=== PATIENT | female | born 1975 | race Caucasian/White ===

== ENCOUNTER 2023-05-03 06:15 | Emergency (ER) | payer MEDICARE ==
[2023-05-03 06:25] VITALS: PULSE 88
[2023-05-03] MEDS ORDERED: ZOFRAN ODT 4 MG PO ONE (07:21)
[2023-05-03] MEDS ORDERED: Hydromorphone 1 mg/ml Injection IV ONE ×2 (07:21→09:18)
[2023-05-03] MEDS ORDERED: Sodium Chloride 0.9% 1000 ML 1,000 ML IV STA (07:21)
[2023-05-03] MEDS ORDERED: PROTONIX 40 MG IV IV ONE ×2 (07:21→08:11)
[2023-05-03] MEDS ORDERED: ZOFRAN ODT 4 MG ONE (07:24)
--- NOTE | 2023-05-03 07:26 | ERPHSYRPT ---
- History of Present Illness Time Seen by Provider: 05/03/23 07:00 Historian: patient Exam Limitations: no limitations Patient Subjective Stated Complaint: nausea, vomiting and diarrhea: Crohn's flare up Triage Nursing Assessment: Pt ambulated into ER without diff. Pt alert and oriented x4, cooperatie. Pt hasn't been feeling good for a few days but began vomiting at 8pm last night. Pt c/o nausea, vomiting and diarrhea. Pt c/o Rt lower abd pain which has gotten progressively worse. Abd soft with active bs x4 quad, tender on palpation. Physician History: This 47-year-old white female patient has a history of Crohn's disease and began vomiting at 8 PM last evening with progressively worsening abdominal pain and localization in the right lower quadrant. Patient has been having vomiting episodes and could not take her Crohn's disease medication. Patient chronically has diarrhea but her diarrhea was worse in the last 24 hours. Patient has had a cholecystectomy and appendectomy in the past. Patient has a history of hypothyroid disease. Timing/Duration: yesterday Quality: aching Abdominal Pain Onset Location: RLQ Pain Radiation: no radiation Severity of Pain-Max: moderate Severity of Pain-Current: moderate Modifying Factors: Improves With: vomiting, other Associated Symptoms: diarrhea, nausea (Diarrhea), vomiting Previous symptoms: same symptoms as today, no recent treatment Allergies/Adverse Reactions: haloperidol [From Haldol] Allergy (Verified 05/03/23 06:35) Difficulty Breathing metoclopramide [From Reglan] Adverse Reaction (Verified 05/03/23 06:35) Itching prochlorperazine [From Compazine] Adverse Reaction (Verified 05/03/23 06:35) Itching Home Medications: Adalimumab [Humira] 40 mg SQ WEEKLY 05/03/23 [History] Dicyclomine HCl 20 mg [Bentyl 20 mg] 1 tab PO DAILY 05/03/23 [History] Diphenoxylate HCl/Atropine [Lomotil Tablet] 1 each PO DAILY 05/03/23 [History] Levothyroxine Sodium 100 Mcg [Synthroid 100 Mcg] 100 mcg PO DAILY 05/03/23 [History] Ondansetron ODT 4 MG [Zofran Odt 4 mg] 1 tab PO Q4H PRN PRN 05/03/23 [History] Hx Tetanus, Diphtheria Vaccination/Date Given: No Hx Influenza Vaccination/Date Given: Yes Hx Pneumococcal Vaccination/Date Given: Yes Immunizations Up to Date: No Travel Risk - International Travel Have you traveled outside of the country in past 3 weeks: No - Coronavirus Screening Are you exhibiting any of the following symptoms?: Yes Symptoms: Vomiting/Diarrhea Close contact with a COVID-19 positive Pt in past 14-21 Days: No - Vaccine Status Have you recieved a Covid-19 vaccination: 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 - Review of Systems Constitutional: No Symptoms Eyes: No Symptoms Ears, Nose, & Throat: No Symptoms Respiratory: No Symptoms Cardiac: No Symptoms Abdominal/Gastrointestinal: Abdominal Pain, Nausea, Vomiting, Diarrhea Genitourinary Symptoms: No Symptoms Musculoskeletal: No Symptoms Skin: No Symptoms Neurological: No Symptoms Psychological: No Symptoms Endocrine: No Symptoms Hematologic/Lymphatic: No Symptoms Immunological/Allergic: No Symptoms All Other Systems: Reviewed and Negative - Past Medical History Pertinent Past Medical History: Yes Neurological History: No Pertinent History ENT History: No Pertinent History Respiratory History: No Pertinent History Endocrine Medical History: Hypothyroidism Musculoskeletal History: No Pertinent History GI Medical History: Crohns Disease, Gallbladder Disease History: No Pertinent History Psycho-Social History: No Pertinent History Female Reproductive Disorders: No Pertinent History - Past Surgical History Past Surgical History: Yes Neuro Surgical History: No Pertinent History Cardiac: No Pertinent History Respiratory: No Pertinent History Gastrointestinal: Appendectomy, Cholecystectomy, Other Genitourinary: No Pertinent History Musculoskeletal: No Pertinent History Female Surgical History: No Pertinent History Other Surgical History: small intestine 6 resections - Social History Smoking Status: Former smoker Exposure to second hand smoke: No Drug Use: none Patient Lives Alone: Yes - Female History Hx Now: No - Nursing Vital Signs Nursing Vital Signs: Initial Vital Signs Temperature 97.8 F 05/03/23 06:23 Pulse Rate 88 05/03/23 06:23 Respiratory Rate 16 05/03/23 06:23 Blood Pressure 169/102 05/03/23 06:23 O2 Sat by Pulse Oximetry 98 05/03/23 06:23 Pain Scale Pain Intensity 8 - Physical Exam General Appearance: mild distress, alert, anxiety Eye Exam: PERRL/EOMI, eyes nml inspection Ears, Nose, Throat Exam: normal ENT inspection, moist mucous membranes Neck Exam: normal inspection, non-tender, supple, full range of motion Respiratory Exam: normal breath sounds, lungs clear, airway intact, No chest tenderness, No respiratory distress Cardiovascular Exam: regular rate/rhythm, normal heart sounds, normal peripheral pulses Gastrointestinal/Abdomen Exam: soft, normal bowel sounds, tenderness (Right lower quadrant), guarding (Right lower quadrant to palpation) Pelvic Exam: not done Rectal Exam: not done Back Exam: normal inspection, normal range of motion, No CVA tenderness, No vertebral tenderness Extremity Exam: normal inspection, normal range of motion, pelvis stable Neurologic Exam: alert, oriented x 3, cooperative, 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, normal mood/affect, nml cerebellar function, nml station & gait, sensation nml Skin Exam: normal color, warm, dry Lymphatic Exam: No adenopathy SpO2 Interpretation: normal SpO2: 98 O2 Delivery: Room Air - Course Nursing assessment & vital signs reviewed: Yes Ordered Tests: Active Orders 24 hr Category Date Time Status IV Insertion STAT Care 05/03/23 07:21 Active ABDOMEN AND PELVIS W/0 CONTRAS [CT] Stat Exams 05/03/23 07:51 Completed AMYLASE Stat Lab 05/03/23 06:34 Completed CBC W DIFF Stat Lab 05/03/23 06:34 Completed CMP Stat Lab 05/03/23 06:34 Completed LIPASE Stat Lab 05/03/23 06:34 Completed Lactic Acid Stat Lab 05/03/23 07:21 Completed UA W/RFX UR CULTURE Stat Lab 05/03/23 07:21 Ordered Medication Summary Discontinued Medications Generic Name Dose Route Start Last Admin Trade Name Mindy PRN Reason Stop Dose Admin Hydromorphone HCl 1 mg 05/03/23 07:21 05/03/23 08:22 Hydromorphone 1 Mg/1ml Inj IV 05/03/23 07:22 1 mg STAT ONE Administration Hydromorphone HCl Confirm 05/03/23 08:11 Hydromorphone 1 Mg/1ml Inj Administered 05/03/23 08:12 Dose 1 mg .ROUTE .STK-MED ONE Sodium Chloride 1,000 mls @ 999 mls/hr 05/03/23 07:21 05/03/23 08:23 Sodium Chloride 0.9% 1000 Ml IV 05/03/23 08:21 999 mls/hr .Q1H1M STA Administration Sodium Chloride Confirm 05/03/23 08:11 Sodium Chloride 0.9% 1000 Ml Administered 05/03/23 08:12 Dose 1,000 mls @ ud .ROUTE .STK-MED ONE Ondansetron HCl 4 mg 05/03/23 07:21 05/03/23 07:32 Zofran 4 Mg/Udtablet Orally Disintegrating PO 05/03/23 07:22 4 mg STAT ONE Administration Ondansetron HCl Confirm 05/03/23 07:24 Zofran 4 Mg/Udtablet Orally Disintegrating Administered 05/03/23 07:25 Dose 4 mg .ROUTE .STK-MED ONE Ondansetron HCl 4 mg 05/03/23 08:24 05/03/23 08:25 Ondansetron Hcl 4 Mg/2 Ml Vial IV 05/03/23 08:25 4 mg STAT ONE Administration Ondansetron HCl Confirm 05/03/23 08:24 Ondansetron Hcl 4 Mg/2 Ml Vial Administered 05/03/23 08:25 Dose 4 mg .ROUTE .STK-MED ONE Pantoprazole Sodium 40 mg 05/03/23 07:21 05/03/23 08:22 Pantoprazole 40 Mg Vial IV 05/03/23 07:22 40 mg STAT ONE Administration Pantoprazole Sodium Confirm 05/03/23 08:11 Pantoprazole 40 Mg Vial Administered 05/03/23 08:12 Dose 40 mg IV .STK-MED ONE Lab/Rad Data: Laboratory Result Diagrams 05/03/23 06:34 05/03/23 06:34 Laboratory Results 05/03/23 05/03/23 05/03/23 Range/Units 07:21 06:34 06:34 WBC 5.9 (4.0-10.5) x10^3/uL RBC 3.63 L (4.1-5.4) x10^6/uL Hgb 11.9 L (12.0-16.0) g/dL Hct 34.3 L (35-47) % MCV 94.5 (78-100) fL MCH 32.8 H (26-32) pg MCHC 34.7 (32-36) g/dL RDW 12.2 (11.5-14.0) % Plt Count 197 (150-450) x10^3/uL MPV 9.1 (7.5-11.0) fL Gran % 51.7 (36.0-66.0) % Immature Gran % (Auto) 0.2 (0.00-0.4) % Nucleat RBC Rel Count 0.0 (0.00-0.1) % Eos # (Auto) 0.13 (0-0.5) x10^3/uL Immature Gran # (Auto) 0.01 (0.00-0.03) x10^3u/L Absolute Lymphs (auto) 2.21 (1.0-4.6) x10^3/uL Absolute Monos (auto) 0.46 (0.0-1.3) x10^3/uL Absolute Nucleated RBC 0.00 (0.00-0.01) x10^3u/L Lymphocytes % 37.6 (24.0-44.0) % Monocytes % 7.8 (0.0-12.0) % Eosinophils % 2.2 (0.00-5.0) % Basophils % 0.5 (0.0-0.4) % Absolute Granulocytes 3.03 (1.4-6.9) x10^3/uL Basophils # 0.03 (0-0.4) x10^3/uL Sodium 140 (137-145) mmol/L Potassium 3.5 (3.5-5.1) mmol/L Chloride 103 (98-107) mmol/L Carbon Dioxide 26 (22-30) mmol/L Anion Gap 13.9 (5-15) MEQ/L BUN 14 (7-17) mg/dL Creatinine 0.75 (0.52-1.04) mg/dL Estimated GFR > 60.0 ML/MIN Glucose 103 (74-106) mg/dL Lactic Acid 1.7 (0.4-2.0) Calcium 9.0 (8.4-10.2) mg/dL Total Bilirubin 0.40 (0.2-1.3) mg/dL AST 34 (14-36) U/L ALT 43 H (0-35) U/L Alkaline Phosphatase 138 H (38-126) U/L Serum Total Protein 7.1 (6.3-8.2) g/dL Albumin 4.1 (3.5-5.0) g/dL Amylase 59 (30-110) U/L Lipase 119 (23-300) U/L - Progress Progress: improved, pain not gone completely, re-examined Progress Note: 05/03/23 08:54 CAT scan of the abdomen pelvis without contrast was interpreted by the radiologist and I reviewed the impression. There is sigmoid diverticulosis without diverticulitis. The remainder of the CT scan of the abdomen pelvis is negative. This patient's medical issues 1 of moderate complexity. The level complexity and the work-up performed is based on review of the patient's past medical history, review of the patient's medication list, review of the patient's drug allergy list, history of present illness and physical findings on examination. The work-up includes placement of intravenous line, infusion of a liter of normal saline solution, infusion of Dilaudid 1 mg, Zofran 4 mg ODT and 4 mg intravenously and Protonix 40 mg intravenously. I reviewed the results of the work-up. The patient does not have any acute intra-abdominal or intrapelvic findings. Patient will be discharged home with a prescription for Zofran and instructed to follow-up with her primary care provider and solutions sales consultant today by phone to make an appointment for further evaluation management. Counseled pt/family regarding: lab results, diagnosis, need for follow-up, rad results Medical Desision Making - Diagnostic Testing Diagnostic test were ordered, analyzed, and reviewed by me: Yes Radiological Interpretation: Reviewed by me, Teleradiologist Report - Risk of complications The pt has a mod risk of morbidity or mortality based on: Need for prescription drug management - Departure Departure Disposition: Home Clinical Impression: Abdominal pain, Vomiting and diarrhea Condition: Stable Critical Care Time: No Referrals: DOCTOR,NO FAMILY [Primary Care Provider] - Follow up/PCP as directed Additional Instructions: Drink plenty of clear liquids before advancing diet. Call your primary care provider and solutions sales consultant today to make a follow-up appointment for further evaluation and management. Take your medications as prescribed. Prescriptions: Ondansetron ODT 4 MG [Zofran Odt 4 mg] 4 mg PO Q6H PRN PRN #10 tablet PRN Reason: Vomiting
[2023-05-03 07:42] LABS: Absolute Neutrophil Ct (ANC) 3.03 x10^3/uL (1.4-6.9); BASOPHIL % 0.5 % (0.0-0.4); Basophil (Absolute #) 0.03 x10^3/uL (0-0.4); Eosinophil % 2.2 % (0.00-5.0); Eosinophil (Absolute #) 0.13 x10^3/uL (0-0.5); Hematocrit 34.3 % (35-47); Hemoglobin 11.9 g/dL (12.0-16.0); IMMATURE GRAN # 0.01 x10^3u/L (0.00-0.03); IMMATURE GRAN % 0.2 % (0.00-0.4); Lymphocyte (Absolute #) 2.21 x10^3/uL (1.0-4.6); Lymphocytes % 37.6 % (24.0-44.0); Mean Cell Volume 94.5 fL (78-100); Mean Corpuscular Hemoglobin 32.8 pg (26-32); Mean Corpuscular Hgb Concent. 34.7 g/dL (32-36); Mean Platelet Volume 9.1 fL (7.5-11.0); Monocyte (Absolute #) 0.46 x10^3/uL (0.0-1.3); Monocytes % 7.8 % (0.0-12.0); Neutrophil % 51.7 % (36.0-66.0); Platelet Count 197 x10^3/uL (150-450); Red Blood Count 3.63 x10^6/uL (4.1-5.4); Red Cell Distribution Width 12.2 % (11.5-14.0); White Blood Count 5.9 x10^3/uL (4.0-10.5)
[2023-05-03 07:56] LABS: ALBUMIN 4.1 g/dL (3.5-5.0); ALKALINE PHOSPHATASE 138 U/L (38-126); AMYLASE 59 U/L (30-110); ANION GAP 13.9 MEQ/L (5-15); BLOOD UREA NITROGEN 14 mg/dL (7-17); CHLORIDE 103 mmol/L (98-107); Carbon Dioxide 26 mmol/L (22-30); Creatinine 1 0.75 mg/dL (0.52-1.04); EST GLOMERULAR FILTRATION RATE > 60.0 ML/MIN; Glucose 103 mg/dL (74-106); LIPASE 119 U/L (23-300); Potassium 3.5 mmol/L (3.5-5.1); SGOT/AST 34 U/L (14-36); SGPT/ALT 43 U/L (0-35); SODIUM 140 mmol/L (137-145); Total Protein 7.1 g/dL (6.3-8.2)
[2023-05-03] MEDS ORDERED: Sodium Chloride 0.9% 1000 ML 1,000 ML ONE (08:11)
[2023-05-03] MEDS ORDERED: Hydromorphone 1 mg/ml Injection ONE ×2 (08:11→09:21)
[2023-05-03] MEDS ORDERED: Zofran 4 MG/2 ML VIAL ONE (08:24)
[2023-05-03] MEDS ORDERED: Zofran 4 MG/2 ML VIAL IV ONE (08:24)
--- NOTE | 2023-05-03 08:42 | XRAY ---
Indication: Right lower quadrant pain. History Crohn's disease. Multiple contiguous axial images obtained through the abdomen and pelvis without contrast. Comparison: None Lung bases clear. Heart not enlarged. Noncontrasted stomach and bowel loops appear nonobstructed. Intact distal small bowel anastomosis. Mild sigmoid diverticulosis without diverticulitis. Previous cholecystectomy and appendectomy. No free fluid/air. Nonobstructing right renal punctate calculus. Remaining liver, pancreas, spleen, adrenal glands, kidneys, ureters, bladder, uterus, and aorta are unremarkable for noncontrast exam. Osseous structures intact. No ventral or inguinal hernias. Impression: 1. Sigmoid diverticulosis, nonobstructing right renal punctate calculus, and postsurgical changes. 2. Remaining CT abdomen/pelvis without contrast exam is negative.
[2023-05-03 08:59] VITALS: O2SAT 98
[2023-05-03 09:30] VITALS: BP 127/80
== END 2023-05-03 09:37 | disposition home or self-care (01) ==
LOC: ED 06:15
DX: R11.2 Nausea with vomiting, unspecified (principal); R19.7 Diarrhea, unspecified; R10.31 Right lower quadrant pain; Z79.899 Other long term (current) drug therapy
CPT/HCPCS: 36415; 74176; 80053; 82150; 83605; 83690; 85025; 96360; 96374; 96375; 96376; 99284; J1170; J2405; Q0162